=== PATIENT | male | born 1940 | race Caucasian/White ===

== ENCOUNTER → 2016-12-25 | Outpatient (CLI) | payer MEDICARE | END | disposition home or self-care (01) | LOC: PCVCCLINIC 13:49 | PROVIDERS: ATTEND Internal Medicine | DX: I48.2 Chronic atrial fibrillation (principal); I10 Essential (primary) hypertension; E78.5 Hyperlipidemia, unspecified; E03.9 Hypothyroidism, unspecified; Z79.01 Long term (current) use of anticoagulants; Z85.46 Personal history of malignant neoplasm of prostate; Z90.79 Acquired absence of other genital organ(s); Z79.899 Other long term (current) drug therapy; Z88.2 Allergy status to sulfonamides; Z91.041 Radiographic dye allergy status | CPT/HCPCS: 80061; 93005; G0463 ==

== ENCOUNTER → 2018-05-01 | Outpatient (CLI) | payer MEDICARE | END | disposition home or self-care (01) | LOC: PCVCCLINIC 14:37 | PROVIDERS: ATTEND Internal Medicine | DX: I48.2 Chronic atrial fibrillation (principal); I10 Essential (primary) hypertension; E78.5 Hyperlipidemia, unspecified; R21 Rash and other nonspecific skin eruption; F32.9 Major depressive disorder, single episode, unspecified; E03.9 Hypothyroidism, unspecified; Z79.01 Long term (current) use of anticoagulants | CPT/HCPCS: 93005; G0463 ==

== ENCOUNTER → 2019-05-07 | Outpatient (CLI) | payer MEDICARE ==
--- NOTE | 2019-05-07 12:58 | PCVCIMAG ---
APPROVED REPORT Study performed: 05/07/2019 11:44:33 EXAM: Comprehensive 2D, Doppler, and color-flow Echocardiogram Patient Location: Echo lab Room #: 2Status: routine BSA: 2.00 HR: 72 bpmBP: 110/60 mmHg Rhythm: Atrial Fibrillation Other Information Study Quality: Good Risk Factors: Cardiac Risk Factors: HTN, Hyperlipidemia Indications Atrial Fibrillation Hypertension/HDD 2D Dimensions IVSd: 7.49 (7-11mm)LVOT Diam: 19.45 (18-24mm) LVDd: 43.33 mm PWd: 9.59 (7-11mm)Ascending Ao: 33.12 (22-36mm) LVDs: 28.28 (25-40mm) Left Atrium: 45.85 (27-40mm) Aortic Root: 25.76 mm LV Single Plane 4CH: 60.46 % LV Single Plane 2CH: 59.82 % Biplane EF: 59.0 % Volumes Left Atrial Volume (Systole) Single Plane 4CH: 152.00 mLSingle Plane 2CH: 139.65 mL Biplane LA Volume: 151.00 mLLA ESV Index: 75.00 mL/m2 Aortic Valve AoV Peak Jadon.: 1.22 m/s AO Peak Gr.: 6.42 mmHgLVOT Max P.04 mmHg LVOT Max V: 0.83 m/s DUNG Vmax: 2.03 cm2 AI Vmax: 3.58 m/s AI Henry: 1.92 m/s2 AI PHT: 545.46 ms Mitral Valve MV E Max Jadon.: 0.74 m/s MV PHT: 56.23 ms MVA (PHT): 3.91 cm2 TDI E/Lateral E': 5.29E/Medial E': 9.25 Medial E' Jadon.: 0.08 m/s Lateral E' Jadon.: 0.14 m/s Pulmonary Valve PV Peak Jadon.: 0.64 m/sPV Peak Gr.: 1.62 mmHg Tricuspid Valve TR Peak Jadon.: 1.88 m/s TR Peak Gr.: 14.16 mmHg TV Vmax: 0.86 m/sPA Pressure: 21.00 mmHg Left Ventricle The left ventricle is normal size. There is normal LV segmental wall motion. There is normal left ventricular wall thickness. Left ventricular systolic function is normal. The left ventricular ejection fraction is within the normal range. LVEF is 55-60%. This study is not technically sufficient to allow evaluation of the LV diastolic function due to atrial fibrillation. Right Ventricle The right ventricle is normal size. The right ventricular systolic function is normal. Atria Left atrium is severely dilated. Right atrium is severely dilated. Aortic Valve Aortic valve is trileaflet, mild sclerosis. Moderate aortic regurgitation. There is no aortic valvular stenosis. Mitral Valve The mitral valve is normal in structure. Mild mitral regurgitation. No evidence of mitral valve stenosis. Tricuspid Valve The tricuspid valve is normal in structure. Mild to moderate tricuspid regurgitation. Pulmonic Valve The pulmonary valve is normal in structure. There is no pulmonic valvular regurgitation. Great Vessels The aortic root is normal in size. IVC is normal in size and collapses >50% with inspiration. Pericardium There is no pericardial effusion. <Conclusion> Left ventricular systolic function is normal. There is normal LV segmental wall motion. LVEF is 55-60%. Left atrium is severely dilated. Aortic valve is trileaflet, mild sclerosis. Moderate aortic regurgitation, no stenosis. The mitral valve is normal in structure. Mild mitral regurgitation. Pulmonary artery systolic pressure could not be reliably ascertained. There is no pericardial effusion.
== END | disposition home or self-care (01) ==
LOC: PCVCIMAG 11:26
PROVIDERS: ATTEND Internal Medicine
DX: I08.3 Combined rheumatic disorders of mitral, aortic and tricuspid valves (principal); I48.21 Permanent atrial fibrillation; I10 Essential (primary) hypertension; R21 Rash and other nonspecific skin eruption; E03.9 Hypothyroidism, unspecified; E78.2 Mixed hyperlipidemia; Z90.49 Acquired absence of other specified parts of digestive tract; Z79.01 Long term (current) use of anticoagulants; Z88.8 Allergy status to other drugs, medicaments and biological substances; Z79.899 Other long term (current) drug therapy
CPT/HCPCS: 36415; 80061; 93005; 93306; G0463